=== PATIENT | male | born 1990 | race Caucasian/White ===

== ENCOUNTER 2017-06-04 15:00 | Inpatient (IN) | payer MEDICAID ==
[~2017-06-04] VITALS: Ht 177.8 cm; Wt 77.1 kg
--- NOTE | ~2017-06-04 | HP ---
Unit #: [id number] #: [id number] Patient: LUCIANA DAIGLE [id number] [place] [address] [id number] I MR#: [id number] NAME: LUCIANA DAIGLE ROOM: P208 Age: 26 Sex: M Admission Date: 06/04/2017 : 1990 Attending Physician: Milad Feliciano M.D. Admitting Physician: Milad Feliciano M.D. Primary Care Physician: Generic Doctor Not In System HISTORY AND PHYSICAL HISTORY OF PRESENT ILLNESS Patient is a 26-year-old male admitted to [address] [place] [address] on 06/04/2017 to detox from heroin. PAST MEDICAL HISTORY 1. Drug abuse including heroin. 2. Nicotine dependence. PAST SURGICAL HISTORY Patient denies. SOCIAL HISTORY He is unemployed and homeless. He smokes 1/2 pack of cigarettes daily and uses heroin on a daily basis. FAMILY MEDICAL HISTORY Noncontributory. ALLERGIES No known drug allergies. CURRENT MEDICATIONS The patient is not on any home medications. REVIEW OF SYSTEMS CONSTITUTIONAL: No fever or chills. HEENT: Denies any sore throat, ear pain or runny nose. CARDIOVASCULAR: Denies chest pain, irregular heart rhythm or palpitations. CHEST: Denies shortness of breath or cough. No hemoptysis. GASTROINTESTINAL: Denies nausea, vomiting, diarrhea or chronic constipation. ENDOCRINE: Denies history of increased thirst or urination. No recent significant weight loss or gain. GENITOURINARY: Denies dysuria, frequency, or hematuria. SKIN: Denies any rashes. HEMATOLOGIC: Denies history of increased bleeding or bruising. MUSCULOSKELETAL: Denies any hot, swollen joints. No generalized muscle pain. NEUROLOGIC: Denies problems with vision or speech. No frequent, severe headaches. No numbness, tingling or weakness in any extremities. Denies loss of bladder or bowel control. PHYSICAL EXAM Unit #: [id number] #: [id number] Patient: LUCIANA DAIGLE GENERAL: He is awake, alert and oriented in no acute distress. VITAL SIGNS: Temperature 97.9, heart rate 59, respiration 20, blood pressure 118/58. HEIGHT: 5'10". WEIGHT: 170 pounds. SKIN: Warm and dry without rash or lesion. HEENT: Normocephalic. TMs not viewed. Oral and nasal passages clear. Conjunctivae clear. PERRLA. EOMs intact. NECK: Supple without lymphadenopathy or thyromegaly. HEART: Regular rate and rhythm without murmur. LUNGS: Clear. ABDOMEN: Soft, nontender. : Not done. EXTREMITIES: No evidence of cyanosis, clubbing or edema. Moves all without focal deficit. NEUROLOGICAL: Grossly within normal limits. Cranial Nerves: II: Visual mcintosh are intact. III, IV AND : Extraocular movements are intact. Pupils are equal, round and reactive to light. V: Facial sensation is grossly normal. VII: Facial movements and expression are normal. VIII: Auditory acuity grossly intact. IX, X: Uvula is midline. Phonation is normal. XI: Patient shrugs shoulders and turns head normally. XII: Tongue protrudes in the midline. Sensory and Motor Function: Sensory and motor sensation is grossly normal. Motor: moves all extremities well. IMPRESSION 1. Psychiatric admission. 2. Drug abuse. 3. Smoker. RECOMMENDATIONS Psychiatric per psychiatrist. MEDICAL: No contraindication to participate in facility activities. MEDICAL PROGNOSIS Good. MEDICAL CONDITION Stable. Dictated by... Patti Cain/praveen TD: 06/05/2017 23:22 JOB #: [id number] Unit #: [id number] #: [id number] Patient: LUCIANA DAIGLE HISTORY AND PHYSICAL Page 1 of 1 X CIRA BUORGEOIS APRN X HISTORY AND PHYSICAL
--- NOTE | ~2017-06-04 | PN ---
Unit #: [id number] #: [id number] Patient: LUCIANA DAIGLE [id number] [facility] [address] [place] [address] [id number] I MR#: [id number] NAME: LUCIANA DAIGLE ROOM: P208 Age: 26 Sex: M Admission Date: 06/04/2017 : 1990 Attending Physician: Milad Feliciano M.D. Admitting Physician: Milad Feliciano M.D. Primary Care Physician: Generic Doctor Not In System [facility] PROGRESS NOTES DATE 06/06/2017 DISCUSSION The patient seems much brighter today and is exhibiting no signs of withdrawal. I have told him to expect a.m. discharge. In the meantime I will increase the strength of his NicoDerm Patch and him to have double food portions. Dictated by... Milad Feliciano M.D. CB/praveen TD: 06/06/2017 21:11 JOB #: [id number] [facility] PROGRESS NOTES Page 1 of 1 X Milad Feliciano MD PROGRESS NOTE
--- NOTE | ~2017-06-04 | PA ---
Unit #: [id number] #: [id number] Patient: LUCIANA DAIGLE [id number] [place] [address] [id number] MR#: [id number] NAME: LUCIANA DAIGLE ROOM: P208 Age: 26 Sex: M Admission Date: 06/04/2017 : 1990 Date of Assessment: 06/05/2017 Attending Physician: Milad Feliciano M.D. Admitting Physician: Milad Feliciano M.D. Primary Care Physician: Generic Doctor Not In System PSYCHIATRIC ASSESSMENT IDENTIFYING INFORMATION The patient is a 26-year-old white male admitted to opioid detox. INFORMANT(S) Chart, patient could not aroused for interview. CHIEF COMPLAINT None given. HISTORY OF PRESENT ILLNESS The patient is a 26-year-old white male admitted to the [address] [place] [address] for opioid detox. The patient reports that he is currently unemployed and homeless. He denies prior history of chemical dependence treatment. He was denying any thoughts of suicidal or homicidal ideation thinking. The patient is today resting comfortably and cannot be aroused for interview in spite of multiple efforts to do so. PAST PSYCHIATRIC HISTORY None reported. PAST MEDICAL HISTORY Noncontributory. MEDICATIONS None. ALLERGIES None. FAMILY HISTORY Noncontributory. SOCIAL HISTORY The patient is presently homeless. He reports intravenous heroin use as described previously. He denies abuse of other psychoactive substances. MENTAL STATUS EXAM At this time reveals the patient to be a thin soundly sleeping white male with multiple attempts to arouse the patient are unsuccessful. ASSETS AND LIABILITIES ASSETS: To be assessed. LIABILITIES: Lack of resources. Unit #: [id number] #: [id number] Patient: LUCIANA DAIGLE ADMITTING DIAGNOSES Opioid use disorder. PSYCHIATRIC PLAN/TREATMENT GOALS The patient remains hospitalized for safety and stabilization. A routine detoxification protocol for opioids has been initiated. We will explore post discharge chemical dependence treatment options with the patient. ESTIMATE LENGTH OF STAY IN THE HOSPITAL Three to five days. Dictated by... Milad Feliciano M.D. TIFFANIE/praveen TD: 06/05/2017 21:36 JOB #: [id number] PSYCHIATRIC ASSESSMENT Page 1 of 1 X Milad Feliciano MD PSYCHIATRIC ASSESSMENT
--- NOTE | ~2017-06-04 | DS ---
Unit #: [id number] #: [id number] Patient: LUCIANA DAIGLE [id number] [place] [address] [id number] I MR#: [id number] NAME: LUCIANA DAIGLE ROOM: P208 Age: 26 Sex: M Admission Date: 06/04/2017 : 1990 Discharge Date: 06/06/2017 Attending Physician: Milad Feliciano M.D. Primary Care Physician: Generic Doctor Not In System DISCHARGE SUMMARY REASON FOR ADMISSION The patient is a 26-year-old white male admitted to the [facility] unit for opioid detox. HOSPITAL COURSE The patient was admitted to the [facility] unit and placed on routine detoxification protocol for opioids. His stay in the hospital was a brief and uneventful one. On 06/06, he requested discharge and it was so ordered. His detox having been completed. FINAL DIAGNOSES Opioid use disorder. FOLLOWUP CARE Followup to take place through the auspices of community mental health resources. DISCHARGE MEDICATIONS No psychotropic or other medications ordered at time of discharge. PROGNOSIS The patient's prognosis is considered fair. Dictated by... Milad Feliciano M.D. CB/eduardo TD: 06/09/2017 15:22 JOB #: [id number] Unit #: [id number] #: [id number] Patient: LUCIANA DAIGLE DISCHARGE SUMMARY Page 1 of 1 X Milad Feliciano MD X DISCHARGE SUMMARY
[2017-06-05 12:42] LABS: URINE APPEARANCE CLEAR; URINE BILIRUBIN NEG (NEG); URINE BLOOD NEG (NEG); URINE COLOR DK YELLOW; URINE GLUCOSE NEG (NEG); URINE KETONE TRACE (NEG); URINE LEUKOCYTE ESTERASE NEG (NEG); URINE NITRATE NEG (NEG); URINE PROTEIN TRACE (NEG); URINE SPECIFIC GRAVITY 1.029 (1.003-1.035)
[2017-06-05 12:59] LABS: AMPHETAMINE NEG (NEG); BARBITURATES NEG (NEG); BENZODIAZEPINES NEG (NEG); COCAINE NEG (NEG); MARIJUANA NEG (NEG); OPIATES POS (NEG); TRICYCLIC ANTIDEPRESSANTS NEG (NEG); U METHADONE NEG (NEG)
== END 2017-06-06 14:56 | disposition home or self-care (01) | DRG 897 ==
LOC: P2S 17:33
PROVIDERS: Specialist
PROC: HZ2ZZZZ Detoxification Services for Substance Abuse Treatment (ICD-10-PCS; principal; 2017-06-04)
DX: F11.20 Opioid dependence, uncomplicated (principal); F17.210 Nicotine dependence, cigarettes, uncomplicated; Z59.0 Homelessness
CPT/HCPCS: 80307; 81003